=== PATIENT | female | born 1955 | race Caucasian/White ===

== ENCOUNTER 2016-10-10 11:28 | Day surgery (SDC) | payer MEDICARE, MEDICAID ==
[~2016-10-10] VITALS: Ht 160 cm; Wt 118.8 kg
[~2016-10-10 11:28] MED LIST: /ESOM40CA; ALL10TAB27 PO; ATEN25TA; BACT800T; BENA25CA4 PO; CALCCHW12; CALCTAB68 PO; CART240C3 PO; COLA100C2; COLE625TAB PO; DILA8TAB5 PO; DOCQ100C PO; DRIS50002 PO; FERR150C PO; FERR325T; FLON0.05; FLOXIN OTIC0.3 %; GABA600T PO; GABAPOW41; MULT1TAB10 PO; NEUR100C; NEUR300C; OCEAN NASAL SPRAY; OMEP40CA2 PO; PAME25CA PO; SPIR50TA2 PO; TETR500C; THERGRAN; TYLE500T78 PO; VENL150C43 PO; VENL75CA2 PO; VENL75TA2; VITA10002 PO; ZYRT10TA6; cetrizine
[2016-10-10] MEDS ORDERED: LR 1,000 ML IV SCH (12:00)
[2016-10-10] MEDS ORDERED: LR 1,000 ML IV ONE (12:00)
[2016-10-10] MEDS ORDERED: MIDAZOLAM INJ 2 MG/2 ML VIAL (J2250) As Ordered ONE (12:43)
[2016-10-10] MEDS ORDERED: fentaNYL 100 MCG/2 ML INJECTION (J3010) As Ordered ONE (12:43)
[2016-10-10] MEDS ORDERED: LIDOCAINE 2% INJ 100 MG/5 ML SDV (FOR ANES.) As Ordered ONE (12:43)
[2016-10-10] MEDS ORDERED: PROPOFOL 200 MG/20 ML VIAL As Ordered ONE (12:43)
[2016-10-10] MEDS ORDERED: LIDOCAINE 1% SDV INJ 30 ML VIAL As Ordered ONE (12:48)
[2016-10-10] MEDS ORDERED: LIDOCAINE W/EPINEPHRINE 1% 20ML VIAL As Ordered ONE (12:49)
--- NOTE | 2016-10-10 14:37 | ROOPDOC ---
[facility] Report Of Operation Report of Operation DATE OF PROCEDURE: 10/10/16 PREOPERATIVE DIAGNOSES: Right greater saphenous vein valvular insufficiency with nonhealing venous stasis ulcers in the right lower extremity. POSTOPERATIVE DIAGNOSES: Right greater saphenous vein valvular insufficiency with nonhealing venous stasis ulcers in the right lower extremity. PROCEDURE: Right Greater saphenous vein radiofrequency ablation with ultrasound guidance. SURGEON: Dr. Javi Robles MD INFORMATION TECHNOLOGY INTERN: None INDICATION: Patient is a 61-year-old female with nonhealing venous stasis ulcers in both lower extremities the right being more significant than the left. Patient underwent evaluation for valvular insufficiency was noted to have a right greater saphenous vein valvular insufficiency amenable to ablation of the greater saphenous vein. Patient was evaluated and the recommendation was to undergo a right greater saphenous vein radiofrequency ablation. Risks, benefits and alternative treatment options were discussed with the patient. Benefits included but were not limited to relief of symptoms and resolution of the venous stasis ulcers. Alternative treatment options included, but were not limited to no intervention with continued conservative management. Risks included but were not limited to infection, bleeding, renal failure requiring hemodialysis, possible need for further open surgical intervention, cerebrovascular accident, myocardial infarction, pulmonary embolus, DVT, loss of limb, loss of life and poor outcome. Patient's questions were answered. Patient understands and accepts these risks and consents to proceed with right greater saphenous vein radiofrequency ablation. ANESTHESIA: Local monitored anesthesia care. IVF: 650 mL ESTIMATED BLOOD LOSS:Approximately 5 mL. HEPARIN:None PROTAMINE:None COMPLICATIONS: None. DRAINS:None SPECIMENS:None IMPLANTS:None FINDINGS: Normal greater saphenous vein anatomy. DESCRIPTION OF PROCEDURE: Patient was taken to operating room, placed supine on the operating room table and the patient was prepped and draped in a standard surgical fashion. A time-out was then performed with myself and all the surgical team members in the room confirming the correct patient, procedure and laterality. The right greater saphenous vein was then cannulated using ultrasound guidance. The vein was cannulated with a micropuncture needle after anesthetizing the overlying skin with 1% lidocaine. Ultrasound was used to guide cannulation with real-time concurrent imaging performed of the entry of the micropuncture needle into the right saphenous vein with a hard copy image preserved. The greater saphenous vein from the below-knee region to the groin was easily compressible, widely patent and free of thrombus. The saphenofemoral junction and common femoral vein were also easily compressible, widely patent and free of thrombus. The micropuncture wire was advanced through the micropuncture needle which was upsized to a micropuncture sheath. The J-wire was advanced through the micropuncture sheath which was upsized to a 7 Malian sheath. The radiofrequency ablation catheter was then advanced through the 7 Malian sheath and positioned with the tip 2 cm from the saphenofemoral junction under ultrasound guidance. The greater saphenous vein from the saphenofemoral junction to the entry site in the below-knee region was then anesthetized and circumferentially insulated using 30 mL of 1% lidocaine mixed with 500 mL of normal saline solution. Once the saphenous vein had been circumferentially insulated with the lidocaine solution the greater saphenous vein was then ablated from 2 cm distal to the saphenofemoral junction to the entry site and the below-knee region using ultrasound guidance and the radiofrequency ablation catheter. Dressings were then applied. Patient tolerated the procedure well. All instrument, sponge and needle counts were correct at the end of the case. Dr. Robles was present for and directed the entire case. Patient was transferred to the recovery room awake, alert, extubated and in stable condition. . Fernie Robles MD Oct 10, 2016 14:37
[2016-10-10] MEDS ORDERED: ACETAMINOPHEN TAB 650MG DOSE (2X325MG) As Ordered ONE (14:45)
[2016-10-10] MEDS ORDERED: ACETAMINOPHEN TAB 650MG DOSE (2X325MG) PO ONE (15:00)
[2016-10-10 15:30] VITALS: BP 106/58
--- NOTE | 2016-10-30 08:00 | RO ---
DATE OF PROCEDURE: 10/10/2016 PREOPERATIVE DIAGNOSES: Bilateral lower extremity venous stasis ulcers, right lower extremity greater saphenous vein valvular insufficiency, right lower extremity venous insufficiency ulcer. POSTOPERATIVE DIAGNOSES: Bilateral lower extremity venous stasis ulcers, right lower extremity greater saphenous vein valvular insufficiency, right lower extremity venous insufficiency ulcer. PROCEDURE: Ultrasound-guided right greater saphenous vein radiofrequency ablation. ATTENDING SURGEON: Dr. Ronit Robles MILLER HEAD ASSISTANT WET PROCESS: None. ANESTHESIA: Local, monitored anesthesia care (MAC). ESTIMATED BLOOD LOSS: 5 mL. IV FLUIDS: 650 mL. HEPARIN: None. COMPLICATIONS: None. DRAINS: None. SPECIMENS: None. IMPLANTS: None. INDICATION: Patient is a 61-year-old female with bilateral lower extremity venous stasis ulcers, which are slow to heal, and was evaluated and found to have venous insufficiency in the right greater saphenous vein. Patient was evaluated and felt to be a good candidate for a right greater saphenous vein radiofrequency ablation. Risks, benefits, and alternative treatment options were discussed with the patient. Alternative treatment options included, but were not limited to, no intervention. Benefits included, but were not limited to, decreased venous hypertension with healing of the venous stasis wounds and prevention of future venous stasis wounds. Risks included, but were not limited to, infection, bleeding, renal failure requiring hemodialysis, possible need for open surgical intervention, burning of the skin overlying the greater saphenous vein, cerebrovascular accident, myocardial infarction, pulmonary embolus, deep venous thrombosis (DVT), loss of limb, loss of life, and poor outcome. The patient's questions were answered. Patient voices understanding of these risks, benefits, and alternative treatment options. Patient agrees to proceed with a right greater saphenous vein radiofrequency ablation with the associated risks. DESCRIPTION OF PROCEDURE: Patient was taken to the operating room, placed supine on the operating room table, and the right lower extremity was prepped and draped in a standard surgical fashion. The time-out was conducted by myself and the staff in the room, confirming the correct patient, procedure, and laterality. The right greater saphenous vein was then cannulated in the below-knee region using an ultrasound guidance and a micropuncture needle with concurrent real-time ultrasound-guided visualization of the needle entering into the right greater saphenous vein in the below-knee region. The micropuncture wire was advanced through the micropuncture needle, which was upsized to a micropuncture sheath. A J-wire was advanced through the micropuncture sheath, which was upsized to a #7-Maltese sheath. The radiofrequency catheter was placed 2 cm distal to the saphenofemoral junction under ultrasound guidance, after which tumescent solution was injected circumferentially around the greater saphenous vein from the saphenofemoral junction to the entry site in the below-knee region. The greater saphenous vein was then ablated using the radiofrequency ablation catheter and ultrasound guidance. The catheter was removed as well as the sheath. Dressings were then applied. Patient tolerated the procedure well. All instrument, sponge, and needle counts were correct at the end of the case. There were no complications. Dr. Robles was present for and directed the entire case. The patient was transferred to the recovery room awake, alert, extubated, and in stable condition after dressings and Dao wraps were applied to the right lower extremity.
== END 2016-10-10 16:00 | disposition home or self-care (01) ==
LOC: M SDC 11:28
PROVIDERS: ATTEND Surgery Vascular Surgery
DX: I83.218 Varicose veins of right lower extremity with both ulcer of other part of lower extremity and inflammation (principal); L97.819 Non-pressure chronic ulcer of other part of right lower leg with unspecified severity
CPT/HCPCS: 36475; J2250; J3010

== ENCOUNTER → 2016-10-29 | Outpatient (CLI) | payer MEDICARE, MEDICAID ==
--- NOTE | 2016-10-29 18:29 | REP ---
Right lower extremity duplex venous ultrasound: Reflux evaluation. History: Venous insufficiency. Chronic. Findings: The deep veins are anechoic and compressible from the groin to the popliteal fossa on two-dimensional scanning in the right lower extremity. No evidence of deep venous thrombosis. Color flow and spectral Doppler interrogation are unremarkable. Reflux evaluation: Exam quality is inhibited some degree by a severe tissue edema, patient body habitus, and inability to stand. The greater saphenous vein is occluded from proximal to distal post EVLT therapy. Multiple occluded collaterals are seen off the anterior accessory vein. There is minimal reflux greater than 0.5 seconds in duration at the common femoral vein and in the anterior accessory greater saphenous vein. Minimal reflux is seen in the proximal superficial femoral vein but no reflux is observed in the mid or distal superficial femoral vein. No reflux was seen in the popliteal or lesser saphenous vein. The lesser saphenous vein measures 3 mm in diameter. Signed by Herb Connell MD 10/30/2016 07:59 A
== END ==
LOC: M RAD 10:35
PROVIDERS: ATTEND Surgery Vascular Surgery
DX: I87.2 Venous insufficiency (chronic) (peripheral) (principal); I87.311 Chronic venous hypertension (idiopathic) with ulcer of right lower extremity

== ENCOUNTER 2016-11-14 05:48 | Day surgery (SDC) | payer MEDICARE, MEDICAID ==
[~2016-11-14] VITALS: Ht 160 cm; Wt 118.4 kg
[2016-11-14] MEDS ORDERED: LR 1,000 ML IV ONE (06:00)
[2016-11-14] MEDS ORDERED: PROPOFOL 200 MG/20 ML VIAL As Ordered ONE ×2 (07:06→07:11)
[2016-11-14] MEDS ORDERED: MIDAZOLAM INJ 2 MG/2 ML VIAL (J2250) As Ordered ONE ×2 (07:07→07:41)
[2016-11-14] MEDS ORDERED: fentaNYL 100 MCG/2 ML INJECTION (J3010) As Ordered ONE (07:07)
[2016-11-14] MEDS ORDERED: LIDOCAINE 1% SDV INJ 30 ML VIAL As Ordered ONE (07:14)
[2016-11-14] MEDS ORDERED: LIDOCAINE W/EPINEPHRINE 1% 20ML VIAL As Ordered ONE (07:15)
[2016-11-14] MEDS ORDERED: PHENYLephrine HCL 500 MCG/5 ML (100MCG/ML) SYRINGE (J2370) As Ordered ONE (07:57)
[2016-11-14 09:40] VITALS: BP 125/80
--- NOTE | 2016-12-04 21:49 | RO ---
DATE OF PROCEDURE: 11/14/2016 PREPROCEDURE DIAGNOSES: Left lower extremity varicose veins, valvular insufficiency and recurrent cellulitis. Lymphoma. Cirrhosis. POSTPROCEDURE DIAGNOSES: Left lower extremity varicose veins, valvular insufficiency and recurrent cellulitis. Lymphoma. Cirrhosis. OPERATIVE PROCEDURE: Ultrasound guided left greater saphenous vein radiofrequency ablation. SURGEON: Ronit Robles MD CHANNEL PROGRAM MANAGER: ANESTHESIA: Local, monitored anesthesia care (MAC). ESTIMATED BLOOD LOSS: 20 mL IV FLUIDS: 1000 mL HEPARIN: None. COMPLICATIONS: None. DRAINS: None. SPECIMENS: None. IMPLANTS: None. INDICATION: The patient is a 61-year-old female with venous valvular insufficiency in the left lower extremity and recurrent cellulitis who was evaluated and recommended to undergo a left greater saphenous vein radiofrequency ablation due to saphenous vein valvular insufficiency. Risks, benefits and alternative treatment options were discussed with the patient. Alternative treatment options included, but were not limited to no intervention. DESCRIPTION OF PROCEDURE: The patient was taken to the operating room, placed supine on the operating room table, then the left lower extremity was prepped and draped in a standard surgical fashion. The ultrasound was used to guide cannulation of the left greater saphenous vein in the below knee region. After which, the radiofrequency ablation catheter was advanced through the greater saphenous vein to 2 cm distal to the saphenofemoral junction under ultrasound guidance. Tumescent solution was injected circumferentially around the greater saphenous vein from the saphenofemoral junction to the entry site in the below knee region. After which, the greater saphenous vein was ablated using the radiofrequency ablation catheter. The catheter and wires were removed, dressings were applied. The patient tolerated the procedure well. All instrument, sponge and needle counts were correct at the end of the case. There were no complications. Dr. Robles was present for and directed the entire case. The patient was transferred to the recovery room, awake, alert, extubated and in stable condition.
== END 2016-11-14 09:50 | disposition home or self-care (01) ==
LOC: M SDC 05:48
PROVIDERS: ATTEND Surgery Vascular Surgery
DX: I83.812 Varicose veins of left lower extremity with pain (principal); I87.2 Venous insufficiency (chronic) (peripheral); L03.116 Cellulitis of left lower limb; C85.90 Non-Hodgkin lymphoma, unspecified, unspecified site; K74.60 Unspecified cirrhosis of liver; I10 Essential (primary) hypertension; R60.0 Localized edema; I49.3 Ventricular premature depolarization; E11.40 Type 2 diabetes mellitus with diabetic neuropathy, unspecified; K44.9 Diaphragmatic hernia without obstruction or gangrene; K21.9 Gastro-esophageal reflux disease without esophagitis; D51.0 Vitamin B12 deficiency anemia due to intrinsic factor deficiency; R29.898 Other symptoms and signs involving the musculoskeletal system; M06.9 Rheumatoid arthritis, unspecified; L20.81 Atopic neurodermatitis; F32.9 Major depressive disorder, single episode, unspecified; M54.16 Radiculopathy, lumbar region; G47.33 Obstructive sleep apnea (adult) (pediatric); Z88.5 Allergy status to narcotic agent; Z88.6 Allergy status to analgesic agent; Z79.899 Other long term (current) drug therapy; Z86.73 Personal history of transient ischemic attack (TIA), and cerebral infarction without residual deficits; Z90.710 Acquired absence of both cervix and uterus; Z98.51 Tubal ligation status; Z92.3 Personal history of irradiation; Z98.84 Bariatric surgery status; Z92.21 Personal history of antineoplastic chemotherapy
CPT/HCPCS: 36475; J2250; J2370; J3010

== ENCOUNTER → 2016-12-02 | Outpatient (CLI) | payer MEDICARE, MEDICAID ==
--- NOTE | 2016-12-02 13:37 | REP ---
Left lower extremity duplex venous ultrasound: History: Post surgical exam for DVT. Status post greater saphenous vein ablation. Findings: The greater saphenous vein shows occlusive thrombosis from within 2 mm of the proximal junction with the common femoral vein to the knee. The deep veins, however, are anechoic and fully compressible on two-dimensional scanning. Color flow imaging is homogeneous in the deep system. Spectral Doppler interrogation is unremarkable on the deep system. Impression: No evidence of DVT in the left lower extremity. Occlusive thrombosis in the treated greater saphenous vein segment. Signed by Herb Connell MD 12/02/2016 02:13 P
== END ==
LOC: M RAD 10:59
PROVIDERS: ATTEND Surgery Vascular Surgery
DX: I87.2 Venous insufficiency (chronic) (peripheral) (principal); I82.812 Embolism and thrombosis of superficial veins of left lower extremity

== ENCOUNTER → 2016-12-05 | Outpatient (REF) | payer MEDICARE, MEDICAID | LOC: M LAB REF 15:34 | PROVIDERS: ATTEND Surgery | DX: I87.313 Chronic venous hypertension (idiopathic) with ulcer of bilateral lower extremity (principal); L97.811 Non-pressure chronic ulcer of other part of right lower leg limited to breakdown of skin; L97.322 Non-pressure chronic ulcer of left ankle with fat layer exposed ==

== ENCOUNTER → 2016-12-09 | Outpatient (CLI) | payer MEDICARE, MEDICAID ==
--- NOTE | 2016-12-09 15:22 | REP ---
RIGHT LOWER EXTREMITY DUPLEX VEINS: HISTORY: Leg pain. There are no filling defects in the deep venous system. The deep venous system is patent. A Bray's cyst is present. This is measured 4.9 x 1.3 x 1.4 cm. Edema is present posteriorly. IMPRESSION: 1. There is no deep venous thrombosis. 2. Bray's cyst. Signed by Cristobal Alcaraz MD 12/09/2016 03:26 P
== END ==
LOC: M RAD 14:01
PROVIDERS: ATTEND Surgery Vascular Surgery
DX: M71.21 Synovial cyst of popliteal space [Baker], right knee (principal)

== ENCOUNTER → 2016-12-19 | Outpatient (REF) | payer MEDICARE, MEDICAID | LOC: M LAB REF 16:21 | PROVIDERS: ATTEND Surgery | DX: L02.415 Cutaneous abscess of right lower limb (principal) ==

== ENCOUNTER → 2019-10-04 | Outpatient (REF) | payer MEDICARE, MEDICAID ==
[~2019-10-04] MED LIST changes: -/ESOM40CA; -ALL10TAB27 PO; +CETI-24 PO; +CYAN100049 PO; -DOCQ100C PO; +DOCQ100C5 PO; -DRIS50002 PO; +DRIS50003 PO; -GABA600T PO; +GABA600T4 PO; +NEXI1CAP3; -OMEP40CA2 PO; +OMEP40CA97 PO; -SPIR50TA2 PO; +SPIR50TA4 PO; -VITA10002 PO
== END ==
LOC: M LAB REF 12:12
PROVIDERS: ATTEND Dermatology
DX: R21 Rash and other nonspecific skin eruption (principal)
CPT/HCPCS: 11104; 11105; 87070; 87077; 87102; 87116; 87186; 87206; 88305; G0463